=== PATIENT | female | born 1990 | race Caucasian/White ===

== ENCOUNTER 2016-12-12 05:49 | Inpatient (IN) ==
[2016-12-12] MEDS: LACTATED RINGERS 1,000 ML IV SCH ×2 (06:16→16:20)
[2016-12-12] MEDS ORDERED: ONDANSETRON 4 MG/2 ML VIAL IV PRN ×2 (06:19→21:05)
[2016-12-12] MEDS ORDERED: TERBUTALINE 1 MG/1 ML VIAL SUBCUT PRN (06:19)
[2016-12-12] MEDS ORDERED: BUTORPHANOL 2 MG/ML VIAL IV PRN (06:19)
[2016-12-12] MEDS ORDERED: ACETAMINOPHEN 325 MG TABLET PO PRN ×2 (06:19→21:05)
[2016-12-12] MEDS ORDERED: OXYTOCIN/LR 20 UNIT/1,000 ML BAG IV ONE ×3 (06:43→21:05)
[2016-12-12] MEDS: OXYTOCIN/LR 20 UNIT/1,000 ML BAG IV SCH (06:47)
[2016-12-12 06:52] LABS: Basophils % 0.3 % (0.0-0.8); Eosinophils # 0.1 10*3/uL (0.0-0.87); Eosinophils % 0.7 % (0.00-10.9); Hemoglobin 11.8 GM/DL (12.0-16.0); Immature Granulocytes % 0.5 %; Immature Granulocytes Absolute 0.06 #; Lymphocytes # 2.1 10*3/uL (1.4-4.0); Lymphocytes % 18.2 % (21.3-54.2); Mean Corpuscular HGB Conc 32.8 GM/DL (32-36); Mean Corpuscular Hemoglobin 27 PG (27-34); Mean Corpuscular Volume 82.4 FL (87-102); Mean Platelet Volume 10.1 FL (9.6-12.0); Monocytes # 0.7 10*3/uL (0.11-0.8); Monocytes % 6.3 % (1.7-12.7); Neutrophils # 8.4 10*3/uL (1.4-7.4); Platelet Count 301 10*3/uL (130-400); Red Blood Count 4.37 10*6/uL (3.8-5.5); White Blood Count 11.3 10*3/uL (4.5-13.71)
[2016-12-12] MEDS ORDERED: CITRIC ACID/SODIUM CITRATE 30 ML UDCUP PO ONE (07:20)
[2016-12-12] MEDS ORDERED: FAMOTIDINE 20 MG/2 ML VIAL IV ONE (07:21)
[2016-12-12] MEDS ORDERED: hydrOXYzine HCL 25 MG/1 ML VIAL IM PRN (07:24)
[2016-12-12] MEDS ORDERED: ONDANSETRON 4 MG/2 ML VIAL IV ONE (07:24)
[2016-12-12] MEDS ORDERED: LACTATED RINGERS 250 ML IV PRN (07:24)
[2016-12-12] MEDS ORDERED: ePHEDrine 50 MG/ML AMP IV PRN (07:24)
[2016-12-12] MEDS ORDERED: PROMETHAZINE 25 MG/1 ML VIAL IM ONE (07:24)
[2016-12-12] MEDS ORDERED: diphenhydrAMINE 50 MG/1 ML VIAL IV PRN ×2 (07:24)
[2016-12-12 07:29] LABS: Alanine Aminotransferase 15 U/L (13-56); Albumin 2.8 G/DL (3.4-5.0); Alkaline Phosphatase 130 U/L (45-117); Aspartate Amino Transferase 13 U/L (0-37); Bilirubin,Total < 0.39 MG/DL (0.2-1.0); Blood Urea Nitrogen 10 MG/DL (7-18); Calcium 8.7 MG/DL (8.5-10.1); Glucose 80 MG/DL (74-106); Potassium 4.6 MMOL/L (3.5-5.1); Sodium 143 MMOL/L (136-145); Total Protein 6.4 G/DL (6.4-8.3)
[2016-12-12] MEDS ORDERED: CITRIC ACID/SODIUM CITRATE 30 ML UDCUP ONE (07:30)
[2016-12-12] MEDS ORDERED: CARBOPROST TROMETHAMINE 250 MCG/ML AMP IM ONE (07:30)
[2016-12-12] MEDS ORDERED: fentaNYL 2 MCG/ROPIV 0.2% EPID 150 ML EPIDURAL ONE ×2 (07:31→18:48)
[2016-12-12] MEDS ORDERED: ePHEDrine 50 MG/ML AMP ONE (08:16)
[2016-12-12] MEDS: fentaNYL 2 MCG/ROPIV 0.2% EPID 150 ML EPIDURAL SCH (08:57)
[2016-12-12 11:27] LABS: Apearance,Urine CLEAR (Clear); Bilirubin,Urine Negative (Negative); Blood, Urine Negative (Negative); Glucose,Urine (UA) Negative (Negative); Ketones,Urine Negative (Negative); Mucus,Urine Occasional /LPF (Occasional); Nitrite,Urine Negative (Negative); Protein,Urine Negative; RBC,Urine <1 /HPF (0-4); Squamous Epithelial Cell,Urine Occasional /HPF (0-10); Urine Color Yellow (Yellow); Urine Urobilinogen < 2.0 EU/DL (0.2-1.0); WBC,Urine 1 /HPF (0-6)
[2016-12-12] MEDS ORDERED: fentaNYL 100 MCG/2 ML VIAL ONE (18:47)
[2016-12-12] MEDS ORDERED: miSOPROStol 200 MCG TABLET RECTAL ONE (20:27)
[2016-12-12] MEDS ORDERED: METHYLERGONOVINE 0.2 MG/1 ML AMP IM ONE (20:32)
[2016-12-12] MEDS ORDERED: BENZOCAINE 20%/MENTHOL 0.5% SPRAY 56 GM CAN TOP PRN (21:05)
[2016-12-12] MEDS ORDERED: DIPH/TET/ACEL PERT BOOSTER VACCINE 0.5 ML VIAL IM ONE (21:05)
[2016-12-12] MEDS ORDERED: BISACODYL 10 MG SUPP RECTAL PRN (21:05)
[2016-12-12] MEDS ORDERED: WITCH HAZEL PADS 100/JAR TOP PRN (21:05)
[2016-12-12] MEDS ORDERED: HYDROCORTISONE 2.5% RECTAL CREAM 30 GM TUBE TOP PRN (21:05)
[2016-12-12] MEDS ORDERED: oxyCODONE/ACETAMINOPHEN 5-325 MG TABLET PO PRN ×2 (21:05)
[2016-12-12] MEDS ORDERED: LANOLIN 50% CREAM 0.3 OZ TUBE TOP PRN (21:05)
[2016-12-12] MEDS ORDERED: MEASLES/MUMPS/RUBELLA VACCINE 0.5 ML VIAL SUBCUT ONE (21:05)
[2016-12-12] MEDS ORDERED: RHO(D) IMMUNE GLOBULIN 300 MCG SYRINGE IM ONE (21:05)
--- NOTE | 2016-12-12 21:05 | History and Physical Update ---
History and Physical Update - Dictation Physical: refer to scanned H&P - Physical Exam Mental Status: alert and oriented Heart: regular rate and rhythm Lung: clear to auscultation Abdomen: within normal limits Vitals: within normal limits History and Physical Changes: 39w1d for induction. No complications. GBS negative.
[2016-12-12] MEDS: IBUPROFEN 800 MG TABLET PO PRN (23:00)
[2016-12-13] MEDS: LACTATED RINGERS 1,000 ML IV SCH ×2 (02:40→21:11)
[2016-12-13] MEDS: fentaNYL 2 MCG/ROPIV 0.2% EPID 150 ML EPIDURAL SCH ×2 (02:40→21:12)
[2016-12-13 06:24] LABS: Basophils % 0.3 % (0.0-0.8); Eosinophils # 0.1 10*3/uL (0.0-0.87); Eosinophils % 0.5 % (0.00-10.9); Hematocrit 30.2 VOL% (35.7-47.0); Immature Granulocytes % 0.6 %; Immature Granulocytes Absolute 0.08 #; Lymphocytes # 2.4 10*3/uL (1.4-4.0); Lymphocytes % 17.8 % (21.3-54.2); Mean Corpuscular HGB Conc 32.5 GM/DL (32-36); Mean Corpuscular Hemoglobin 27 PG (27-34); Mean Corpuscular Volume 83.9 FL (87-102); Mean Platelet Volume 10.5 FL (9.6-12.0); Monocytes # 0.7 10*3/uL (0.11-0.8); Monocytes % 5.1 % (1.7-12.7); Neutrophils % 75.7 % (38.7-73.9); Red Cell Distribution Width 14.8 % (9.3-17.3); White Blood Count 13.2 10*3/uL (4.5-13.71)
[2016-12-13 06:33] LABS: Hemoglobin 9.8 GM/DL (12.0-16.0); Platelet Count 237 10*3/uL (130-400)
[2016-12-13] MEDS: DOCUSATE SODIUM 100 MG CAPSULE PO SCH ×2 (08:26→20:58)
[2016-12-13] MEDS: IBUPROFEN 800 MG TABLET PO PRN (21:06)
[2016-12-13] MEDS: OXYTOCIN/LR 20 UNIT/1,000 ML BAG IV SCH (21:11)
[2016-12-14] MEDS: LACTATED RINGERS 1,000 ML IV SCH (00:39)
--- NOTE | 2016-12-14 07:25 | OB/GYN Progress Note ---
Assessment and Plan (1) Vaginal delivery Status: Acute Assessment and plan: Routine care. Current Visit: Yes KNOCKOUT MAN - PN: Subj Interval history: 12/13/16: PPD#1 Doing well without complaints. Tolerating regular diet. Voiding without difficulty. Exam KNOCKOUT MAN - Constitutional Vitals: Vital Signs Temp Pulse Resp BP Pulse Ox 12/14/16 06:00 18 12/14/16 04:00 96.7 F L 74 20 130/68 97 12/14/16 02:00 20 12/14/16 00:00 98.2 F 97 H 18 125/78 99 12/13/16 22:00 18 12/13/16 20:00 98.5 F 98 H 18 117/72 99 12/13/16 15:34 98.2 F 111 H 22 144/83 98 12/13/16 11:57 98.7 F 106 H 20 122/81 98 12/13/16 07:31 97.3 F L 83 20 118/70 100 General appearance: no acute distress, over weight - Head Head exam: Present: normal inspection, normocephalic - Eye Eye exam: Present: EOMI - Respiratory Respiratory exam: Present: clear to auscultation bilaterally - Cardiovascular Cardiovascular exam: Present: regular rate and rhythm - GI/Abdominal GI/Abdominal exam: Present: soft (fundus firm, nontender) - Extremities Exam Extremities exam: Present: normal inspection - Neurological Exam Neurological exam: Present: alert, oriented X3 - Psychiatric Psychiatric exam: Present: normal affect, normal mood Results - Labs CBC & BMP: 12/13/16 05:49 12/12/16 06:34 Lab Results: I have reviewed the past 24 hour labs
--- NOTE | 2016-12-14 07:28 | Discharge Summary ---
Hospital Course - Hospital Course Hospital Course: Pt admitted at 39 wks for induction. She delivered without complications. Her course has been unremarkable except that she has done very well. Diagnosis - Discharge Diagnosis (1) Vaginal delivery Status: Acute Discharge Plan - Discharge Data Disposition: Disch To Home/Self Care Condition at Discharge: Stable Discharge Diet: regular diet Activity: other (pelvic rest x 6 wks) Hygiene: may shower Weight Bearing at Discharge: full weight bearing Driving: no restrictions (if not taking narcotics) Contact your physician if you experience:: fever over 101, Difficulty voiding, Redness or swelling, Nausea/Vomiting, Shortness of breath, Bleeding, pain uncontrolled by pain medications - Discharge Medications New Ibuprofen Tab [Motrin Tab] 800 mg PO Q6H PRN #30 tablet PRN Reason: Pain Moderate (4-7) oxyCODONE/ACETAMINOPHEN 5-325 [Percocet 5-325] 1 tablet PO Q6H PRN #20 tablet PRN Reason: Pain Severe (8-10) No Action metFORMIN [Glucophage] 500 mg PO BID W/MEALS Multivitamin () [ Vitamin] 1 tablet PO DAILY - Follow Up or Referral Follow Up: Christen Alfaro DO [Physician] - (6 wks ) - Forms/Instructions Exam - Constitutional Vitals: Period Temp Pulse Resp BP Sys/Wan Pulse Ox Last 24 Hr 96.7 F-98.7 F 74-111 18-22 117-144/68-83 97-100 General appearance: no acute distress, over weight - Head Head exam: Present: normal inspection, normocephalic - Eye Eye exam: Present: EOMI - Respiratory Respiratory exam: Present: clear to auscultation bilaterally - Cardiovascular Cardiovascular exam: Present: regular rate and rhythm - GI/Abdominal GI/Abdominal exam: Present: soft (fundus firm, nontender) - Extremities Exam Extremities exam: Present: normal inspection - Neurological Exam Neurological exam: Present: alert, oriented X3 - Psychiatric Psychiatric exam: Present: normal affect, normal mood - Skin Skin exam: Present: normal color, warm DS: Provider Date of admission: 12/12/16 06:19 Primary care physician: . No PCP Attending physician on admission: Christen Alfaro DO Consults: 12/12/16 06:19 Consult to Anesthesiology [CONS] Routine Consulting Provider: Reason for Anesthesiology: Epidural Consult Comment: Epidural for pain managment 12/12/16 21:05 Consult to Opticianry Teacher [CONS] Routine Consult Opticianry Teacher: Breast Feeding Discharging clinician: Christen Alfaro DO Expected date of discharge: 12/14/16
[2016-12-14 07:32] VITALS: BP 156/88
[2016-12-14] MEDS: DOCUSATE SODIUM 100 MG CAPSULE PO SCH (09:07)
--- NOTE | 2016-12-15 11:43 | Pathology Report from [facility] ---
ACCESSION # : [id number] PATIENT NAME : Sommer Cuevas ORDERING DR : KANNAN SILVEIRA CLINICAL HX: IUP at term, gestational diabetic POST-OP DX: Same SPECIMEN INFO: Placenta GROSS DESCRIPTION: The specimen is received fresh labeled with the patient's name Sommer Cuevas and :PLACENTA" consists of a 340 gram placenta that measures 15.8 x 14.2 x up to 2.5 cm. The membranes are pink hernandez and slightly opaque. The umbilical cord is eccentrically inserted, contains three vessels and measures 36.2 cm. The surface is green velázquez with peripheral fibrin present. The maternal surface is hemorrhagic with mildly disrupted cotyledons with fibrin and calcifications noted. No other gross abnormalities are noted upon sectioning. Sections submitted A- membranes and cord, B- and maternal surfaces. DIAGNOSIS FOR SOMMER CUEVAS: PLACENTA, MEMBRANES, UMBILICAL CORD: Focal placental infarction with dystrophic calcification, moderate intervillous blood , adjacent fibrin deposits. Tri-vessel umbilical cord, eccentrically inserted. Membranes with focal chronic inflammation and attached blood. SERVICE DATE: 12/13/2016 REPORT DATE: 12/15/2016 PATHOLOGIST: Brii Baird
== END 2016-12-14 12:30 | disposition home or self-care (01) | DRG 775 ==
LOC: N.LDOUT 05:49 → N.LD 05:51 → N.OB 22:59
PROVIDERS: ADMIT Obstetrics & Gynecology; ATTEND Obstetrics & Gynecology

== ENCOUNTER 2019-08-28 16:59 | Inpatient (IN) ==
[2019-08-28] MEDS ORDERED: BUTORPHANOL 2 MG/ML VIAL IV PRN (19:41)
[2019-08-28] MEDS ORDERED: ONDANSETRON 4 MG/2 ML VIAL IV PRN (19:41)
[2019-08-28] MEDS ORDERED: AMPICILLIN INJ 2,000 MG in SODIUM CHLORIDE 0.9% 100 ML IV ONE (19:45)
[2019-08-28] MEDS: LACTATED RINGERS 1,000 ML IV SCH ×2 (19:50→22:02)
[2019-08-28 20:07] LABS: Basophils # 0.1 10*3/uL (0.0-0.2); Basophils % 0.3 % (0.0-0.8); Eosinophils % 0.2 % (0.00-10.9); Hemoglobin 11.9 GM/DL (12.0-16.0); Immature Granulocytes % 0.8 %; Immature Granulocytes Absolute 0.13 #; Lymphocytes # 2.3 10*3/uL (1.4-4.0); Lymphocytes % 13.7 % (21.3-54.2); Mean Corpuscular HGB Conc 33.1 GM/DL (32-36); Mean Corpuscular Volume 83.7 FL (87-102); Mean Platelet Volume 10.4 FL (9.6-12.0); Monocytes % 5.2 % (1.7-12.7); Neutrophils % 79.8 % (38.7-73.9); Platelet Count 311 T/CUMM (130-400); Red Cell Distribution Width 14.5 % (9.3-17.3); White Blood Count 16.5 T/CUMM (4-12)
[2019-08-28] MEDS ORDERED: NALOXONE 0.4 MG/ML VIAL IV PRN (21:29)
[2019-08-28] MEDS ORDERED: FAMOTIDINE 20 MG/2 ML VIAL IV ONE (21:29)
[2019-08-28] MEDS ORDERED: CITRIC ACID/SODIUM CITRATE 30 ML UDCUP PO ONE (21:29)
[2019-08-28] MEDS ORDERED: fentaNYL 2 MCG/ROPIV 0.2% EPID 100 ML EPIDURAL SCH (21:30)
[2019-08-28] MEDS ORDERED: METHYLERGONOVINE 0.2 MG/1 ML AMP ONE (21:32)
[2019-08-28] MEDS ORDERED: ePHEDrine 50 MG/ML AMP ONE (21:32)
[2019-08-28] MEDS ORDERED: miSOPROStoL 200 MCG TABLET ONE (21:41)
[2019-08-28] MEDS ORDERED: CARBOPROST TROMETHAMINE 250 MCG/ML AMP IM ONE (21:42)
[2019-08-28] MEDS ORDERED: TRANEXAMIC ACID 1,000 MG/10 ML VIAL ONE (21:42)
[2019-08-28] MEDS ORDERED: OXYTOCIN/LR 20 UNIT/1,000 ML BAG IV ONE (21:42)
[2019-08-29] MEDS ORDERED: OXYTOCIN/LR 20 UNIT/1,000 ML BAG IV SCH (00:30)
[2019-08-29] MEDS: AMPICILLIN INJ 1,000 MG in SODIUM CHLORIDE 0.9% 100 ML IV SCH ×2 (03:02→07:15)
[2019-08-29] MEDS ORDERED: SODIUM CHLORIDE 0.9% 100 ML IV ONE (03:36)
[2019-08-29] MEDS: ePHEDrine 50 MG/ML AMP IV PRN ×2 (05:50→05:56)
[2019-08-29] MEDS ORDERED: LIDOCAINE 1% 50 ML VIAL ONE (09:12)
[2019-08-29] MEDS ORDERED: miSOPROStoL 200 MCG TABLET PO ONE (09:44)
[2019-08-29] MEDS: miSOPROStoL 200 MCG TABLET PO SCH ×2 (17:39→23:51)
[2019-08-29] MEDS ORDERED: IBUPROFEN 800 MG TABLET PO PRN (19:18)
[2019-08-29] MEDS ORDERED: oxyCODONE/ACETAMINOPHEN 5-325 MG TABLET PO PRN (19:19)
[2019-08-29] MEDS: DOCUSATE SODIUM 100 MG CAPSULE PO SCH (20:53)
[2019-08-30] MEDS ORDERED: miSOPROStoL 200 MCG TABLET PO SCH
[2019-08-30 06:12] LABS: Basophils % 0.3 % (0.0-0.8); Eosinophils # 0.1 10*3/uL (0.0-0.87); Eosinophils % 1.1 % (0.00-10.9); Hemoglobin 10.1 GM/DL (12.0-16.0); Immature Granulocytes % 0.8 %; Immature Granulocytes Absolute 0.08 #; Lymphocytes # 2.1 10*3/uL (1.4-4.0); Lymphocytes % 20.4 % (21.3-54.2); Mean Corpuscular HGB Conc 32.6 GM/DL (32-36); Mean Corpuscular Volume 85.6 FL (87-102); Mean Platelet Volume 9.8 FL (9.6-12.0); Monocytes % 7.5 % (1.7-12.7); Neutrophils % 69.9 % (38.7-73.9); Platelet Count 229 T/CUMM (130-400); Red Blood Count 3.62 MC/CUMM (3.8-5.5); Red Cell Distribution Width 14.5 % (9.3-17.3); White Blood Count 10.5 T/CUMM (4-12)
[2019-08-30] MEDS: DOCUSATE SODIUM 100 MG CAPSULE PO SCH (10:32)
[2019-08-31] MEDS: DOCUSATE SODIUM 100 MG CAPSULE PO SCH (01:39)
[2019-08-31 07:43] VITALS: BP 135/67
== END 2019-08-31 08:35 | disposition home or self-care (01) | DRG 807 ==
LOC: N.LDOUT 16:59 → N.LD 17:01 → N.OB 08-29 13:20
PROVIDERS: ADMIT Obstetrics & Gynecology; ATTEND Obstetrics & Gynecology